=== PATIENT | male | born 2000 | race Caucasian/White ===

== ENCOUNTER 2023-03-17 20:01 | Emergency (ER) | payer OTHER ==
--- NOTE | 2023-03-17 20:41 | ED General ---
General Chief Complaint: General Problems/Pain Stated Complaint: FEVER Nursing Triage Note: PT AMB TO RM 5 ACCOMPAINED BY EMS WITH CC OF FEVER, DIZZINESS AND INDGESTION X 1 DAY. PT UNK HOW HIGH FEVER HAS BEEN. PT DENIES ABD PAIN NAUSEA AND VOMITING. Source of Information: Patient Exam Limitations: No Limitations History of Present Illness Date Seen by Provider: March 17, 2023 Time Seen by Provider: 20:38 Initial Comments Patient is a 23-year-old male who presents to ED with feeling warm, dizzy, indigestion, facial warmness. Symptoms over the past few days of feeling dizzy. States he feels off balance. Denies room spinning, ear pain, hearing loss. States 1 hour ago he started feeling short of breath. He states his left and right face feels warm. Denies of any visual changes, unilateral muscle weakness or sensory changes. Reports some indigestion type symptoms secondary to this warmth on his face. He is concerned that his wisdom teeth are infected. Patient has seen a dentist and they are recommending pulling his wisdom teeth in 4 months. Denies headache, chest pain, cough, abdominal pain. Reports some diarrhea since yesterday. Denies any vomiting. No current abdominal pain, dysuria, hematuria. Allergies and Home Medications Allergies Coded Allergies: No Known Drug Allergies (Unverified , 03/17/23) Patient Home Medication List Home Medication List Reviewed: Yes Amoxicillin/Potassium Clav (Amox Tr-K Clv 875-125 mg Tab) 875 Mg-125 Mg Tablet, 1 EACH PO BID Prescribed by: SATISH DOTY on 03/17/23 8087 Review of Systems Review of Systems Constitutional: No chills, No diaphoresis; dizziness, fever, malaise, weakness EENTM: No ear pain, No blurred vision, No double vision Respiratory: No cough, No dyspnea on exertion; short of breath Cardiovascular: No chest pain, No edema Gastrointestinal: No abdominal pain, No constipation, No diarrhea; nausea, vomiting Genitourinary: No decreased output, No discharge Musculoskeletal: No back pain, No joint pain All Other Systems Reviewed Negative Unless Noted: Yes Past [id number]-Enzxzp Hx Patient Social History Tobacco Use?: No Substance use?: No Alcohol Use?: Yes Alcohol Frequency: Once in a while Pt feels they are or have been: No Physical Exam Vital Signs Vital Signs - First Documented 03/17/23 20:12 Temp 37.4 Pulse 96 Resp 18 B/P (MAP) 137/74 (95) Pulse Ox 100 Capillary Refill : Less Than 3 Seconds Height, Weight, BMI Height: '" Weight: lbs. oz. kg; BMI Method: General Appearance: No Apparent Distress, WD/WN Eyes: Bilateral Eye Normal Inspection, Bilateral Eye PERRL, Bilateral Eye EOMI HEENT: PERRL/EOMI, TMs Normal, Normal ENT Inspection, Pharynx Normal, Other (Bilateral upper wisdom teeth noted with surrounding gum swelling and redness. No function of mass) Neck: Full Range of Motion, Normal Inspection, Non Tender Respiratory: Chest Non Tender, Lungs Clear, Normal Breath Sounds, No Accessory Muscle Use Cardiovascular: Regular Rate, Rhythm, No Edema, No Gallop, No JVD Gastrointestinal: Normal Bowel Sounds, No Organomegaly, No Pulsatile Mass Rectal: Normal Exam Back: Normal Inspection, No CVA Tenderness, No Vertebral Tenderness Extremity: Normal Capillary Refill, Normal Inspection, Normal Range of Motion, Non Tender Neurologic/Psychiatric: Alert, Oriented x3, No Motor/Sensory Deficits, Normal Mood/Affect, technical services coordinator II-XII Norm as Tested Skin: Normal Color, Warm/Dry Progress/Results/Core Measures Suspected Sepsis SIRS Temperature: Pulse: 96 Respiratory Rate: 18 Laboratory Tests 03/17/23 20:49: White Blood Count 13.3H Blood Pressure 137 /74 Mean: 95 Laboratory Tests 03/17/23 20:49: Creatinine 1.00, Platelet Count 345, Total Bilirubin 0.5 Results/Orders Lab Results Laboratory Tests Test 03/17/23 20:40 03/17/23 20:49 03/17/23 20:54 Range/Units Urine Color YELLOW Urine Clarity CLEAR Urine pH 7.0 5-9 Urine Specific [place] 1.020 1.016-1.022 Urine Protein 1+ H NEGATIVE Urine Glucose (UA) NEGATIVE NEGATIVE Urine Ketones TRACE H NEGATIVE Urine Nitrite NEGATIVE NEGATIVE Urine Bilirubin NEGATIVE NEGATIVE Urine Urobilinogen 1.0 < = 1.0 MG/DL Urine Leukocyte Esterase NEGATIVE NEGATIVE Urine RBC (Auto) NEGATIVE NEGATIVE Urine RBC NONE /HPF Urine WBC NONE /HPF Urine Crystals PRESENT H /LPF Urine Amorphous Sediment MOD JESE PHOSPHATE H /LPF Urine Bacteria NEGATIVE /HPF Urine Casts NONE /LPF Urine Mucus NEGATIVE /LPF Urine Culture Indicated NO White Blood Count 13.3 H 4.3-11.0 10^3/uL Red Blood Count 4.85 3.80-5.11 10^6/uL Hemoglobin 15.0 11.5-16.0 g/dL Hematocrit 43 35-52 % Mean Corpuscular Volume 89 80-99 fL Mean Corpuscular Hemoglobin 31 25-34 pg Mean Corpuscular Hemoglobin Concent 35 32-36 g/dL Red Cell Distribution Width 11.9 10.0-14.5 % Platelet Count 345 130-400 10^3/uL Mean Platelet Volume 10.2 9.0-12.2 fL Immature Granulocyte % (Auto) 0 % Neutrophils (%) (Auto) 69 42-75 % Lymphocytes (%) (Auto) 23 12-44 % Monocytes (%) (Auto) 5 0-12 % Eosinophils (%) (Auto) 2 0-10 % Basophils (%) (Auto) 1 0-10 % Neutrophils # (Auto) 9.1 H 1.8-7.8 10^3/uL Lymphocytes # (Auto) 3.1 1.0-4.0 10^3/uL Monocytes # (Auto) 0.7 0.0-1.0 10^3/uL Eosinophils # (Auto) 0.2 0.0-0.3 10^3/uL Basophils # (Auto) 0.1 0.0-0.1 10^3/uL Immature Granulocyte # (Auto) 0.0 0.0-0.1 10^3/uL Sodium Level 142 135-145 MMOL/L Potassium Level 4.1 3.6-5.0 MMOL/L Chloride Level 105 98-107 MMOL/L Carbon Dioxide Level 25 21-32 MMOL/L Anion Gap 12 5-14 MMOL/L Blood Urea Nitrogen 11 7-18 MG/DL Creatinine 1.00 0.60-1.30 MG/DL Estimat Glomerular Filtration Rate 108 BUN/Creatinine Ratio 11 Glucose Level 95 70-105 MG/DL Calcium Level 9.9 8.5-10.1 MG/DL Corrected Calcium 9.5 8.5-10.1 MG/DL Total Bilirubin 0.5 0.1-1.0 MG/DL Aspartate Amino Transf (AST/SGOT) 16 5-34 U/L Alanine Aminotransferase (ALT/SGPT) 23 0-55 U/L Alkaline Phosphatase 69 40-136 U/L C-Reactive Protein High Sensitivity 0.42 0.00-0.50 MG/DL Total Protein 7.7 6.4-8.2 GM/DL Albumin 4.5 3.2-4.5 GM/DL Lipase 36 8-78 U/L Influenza Type A (RT-PCR) Not Detected Not Detecte Influenza Type B (RT-PCR) Not Detected Not Detecte SARS-CoV-2 RNA (RT-PCR) Not Detected Not Detecte My Orders Orders - TERELL YOUNG PA Ua Culture If Indicated (03/17/23 20:27) Cbc With Automated Diff (03/17/23 20:37) Comprehensive Metabolic Panel (03/17/23 20:37) Lipase (03/17/23 20:37) Hs C Reactive Protein (03/17/23 20:37) Covid 19 Inhouse Test (03/17/23 20:37) Influenza A And B By Pcr (03/17/23 20:37) Amoxicillin Capsule (Polymox Capsule) (03/17/23 21:40) Amoxicillin/Clavulanate Tablet (Augmenti (03/17/23 21:43) Vital Signs/I&O 03/17/23 03/17/23 20:12 21:54 Temp 37.4 Pulse 96 95 Resp 18 18 B/P (MAP) 137/74 (95) 123/82 Pulse Ox 100 97 Capillary Refill : Less Than 3 Seconds Blood Pressure Mean: 95 Departure Communication (PCP) Patient with multiple complaints. Patient denies of any specific pain. Reports bilateral upper facial warmness. States he is scheduled to get his wisdom teeth removed in 4 months. He is concerned that this is getting worse. Sensitivity to his upper wisdom teeth. Patient with associated headache. Took ibuprofen with improvement. No vomiting or diarrhea. Denies of any specific abdominal pain or urinary symptoms. Reports some shortness of breath started 1 hour ago without chest pain or cough. No known cardiac history. Lung sounds clear bilateral. Denies cough or wheezing. He is not hypoxic or febrile. Soft abdom en without any tenderness. general lab work CBC, CMP, urinalysis, COVID influenza was ordered. CBC showed a white blood count of 13 but otherwise grossly unremarkable. Chemistry grossly unremarkable. Urinalysis negative for infection. COVID influenza negative. Patient does not appear in acute distress. Due to the dental discomfort will discharge with Augmentin for potential underlying dental infection. No facial swelling or redness. Very minimal gum erythema and swelling. Patient was given a dose of augmentin here. Recommend follow-up with your dentist. Nonspecific dizziness. Nonspecific short of breath. No specific chest pain. No focal neural deficits or neurological red flag findings suggesting further imaging of the head. Recommend outpatient follow-up with your PCP in 2 to 3 days for reevaluation. If any worsening symptoms return back to ED Impression Primary Impression: Pain, dental Disposition: HOME, SELF-CARE Condition: Stable Departure-Patient Inst. Decision time for Depature: 21:45 Ref[place]: [facility] [place]LOCAL PHYSICIAN (PCP) Primary Care Physician Patient Instructions: Dental Pain ED Add. Discharge Instructions: Recommend following up with your dentist. If any worsening symptoms return back to ED. All discharge instructions reviewed with patient and/or family. Voiced u nderstanding. Scripts Amoxicillin/Potassium Clav (Amox Tr-K Clv 875-125 mg Tab) 875 Mg-125 Mg Tablet 1 EACH PO BID for 7 Days, #14 TAB Prov: TERELL YOUNG 03/17/23 TERELL YOUNG March 17, 2023 20:41
[2023-03-17 20:57] LABS: BASOPHILS # (AUTO) 0.1 10^3/uL (0.0-0.1); BASOPHILS % (AUTO) 1 % (0-10); EOSINOPHILS # (AUTO) 0.2 10^3/uL (0.0-0.3); EOSINOPHILS % (AUTO) 2 % (0-10); HEMATOCRIT 43 % (35-52); LYMPHOCYTES # (AUTO) 3.1 10^3/uL (1.0-4.0); LYMPHOCYTES % (AUTO) 23 % (12-44); MEAN CORPUSCULAR HEMOGLOBIN 31 pg (25-34); MEAN CORPUSCULAR HGB CONC 35 g/dL (32-36); MEAN CORPUSCULAR VOLUME 89 fL (80-99); MEAN PLATELET VOLUME 10.2 fL (9.0-12.2); MONOCYTES # (AUTO) 0.7 10^3/uL (0.0-1.0); MONOCYTES % (AUTO) 5 % (0-12); NEUTROPHILS # (AUTO) 9.1 10^3/uL (1.8-7.8); NEUTROPHILS % (AUTO) 69 % (42-75); PLATELET COUNT 345 10^3/uL (130-400); WHITE BLOOD COUNT 13.3 10^3/uL (4.3-11.0)
[2023-03-17 20:58] LABS: BILIRUBIN,URINE NEGATIVE (NEGATIVE); CLARITY,URINE CLEAR; COLOR,URINE YELLOW; GLUCOSE, URINE (UA) NEGATIVE (NEGATIVE); KETONES,URINE TRACE (NEGATIVE); LEUKOCYTE ESTERASE ,URINE NEGATIVE (NEGATIVE); NITRITE,URINE NEGATIVE (NEGATIVE); PROTEIN,URINE 1+ (NEGATIVE)
[2023-03-17 21:08] LABS: AMORPHOUS SEDIMENT,UR MOD AMOR PHOSPHATE /LPF; BACTERIA,URINE NEGATIVE /HPF
[2023-03-17 21:13] LABS: ALBUMIN 4.5 GM/DL (3.2-4.5); POTASSIUM 4.1 MMOL/L (3.6-5.0)
[2023-03-17 21:14] LABS: CALCIUM 9.9 MG/DL (8.5-10.1)
[2023-03-17 21:16] LABS: TOTAL PROTEIN 7.7 GM/DL (6.4-8.2)
[2023-03-17 21:18] LABS: BILIRUBIN,TOTAL 0.5 MG/DL (0.1-1.0)
[2023-03-17] MEDS ORDERED: AMOXICILLIN 500 MG (POLYMOX) CAP PO STA (21:40)
[2023-03-17] MEDS ORDERED: AUGMENTIN 875 MG TAB (AMOXICILLIN/CLAVULANATE) PO STA (21:43)
[2023-03-17] MEDS ORDERED: AMOX1TAB12 PO (21:45)
[2023-03-17 21:54] VITALS: BP 123/82
== END 2023-03-17 21:54 | disposition home or self-care (01) ==
LOC: EDSEX 20:05 → ER 20:05
DX: K08.89 Other specified disorders of teeth and supporting structures (principal); R51.9 Headache, unspecified; R06.02 Shortness of breath; Z20.822 Contact with and (suspected) exposure to COVID-19; Z28.311 Partially vaccinated for COVID-19
CPT/HCPCS: 36415; 80053; 81000; 83690; 85025; 86141; 87636